=== PATIENT | male | born 2000 | race African-American/Black ===

== ENCOUNTER 2018-07-18 14:45 | Emergency (ER) | payer SELFPAY ==
[~2018-07-18] VITALS: Ht 167.6 cm; Wt 54.5 kg
[2018-07-18 14:49] VITALS: Ht 167.6 cm; Wt 54.5 kg
[2018-07-18 15:25] LABS: BASOPHILS 0.2 % (0-2); EOSINOPHILS 1.4 % (0-7); HEMATOCRIT 43.4 % (42.0-54.0); HEMOGLOBIN 14.9 g/dL (13.5-17.5); IMMATURE GRANULOCYTES 0.2 % (0-5); LYMPHOCYTES 31.5 % (15-50); MCH 31.2 pg (26.0-34.0); MCHC 34.3 g/dL (31.0-37.0); MEAN PLATELET VOLUME 9.4 fL (7.4-10.4); MONOCYTES 11.3 % (2-11); NEUTROPHILS 55.4 % (40-80); PLATELET COUNT 286 10x3/uL (130-400); RBC 4.77 10x6/uL (4.20-6.10); RDW 13.1 % (11.5-14.5); WBC 8.1 10x3/uL (4.8-10.8)
[2018-07-18 15:39] LABS: ALKALINE PHOSPHATASE 87 U/L (46-116); ALT (SGPT) 42 U/L (10-68); BILIRUBIN - TOTAL 0.46 mg/dL (0.2-1.3); CALC OSMOLALITY 278 mosm/kg (275-300); CARBON DIOXIDE 31.3 mmol/L (21.0-32.0); CHLORIDE - SERUM 101 mmol/L (98-107); GLUCOSE 82 mg/dL (74-106); PROTEIN - SERUM 8.6 g/dL (6.4-8.2); SODIUM 139 mmol/L (136-145); UREA NITROGEN 18 mg/dL (7-18); eGFR NON AFRICAN AMERICAN > 90 mL/min (90-120)
[2018-07-18 16:33] LABS: COLOR YELLOW (YELLOW)
[2018-07-18 16:34] LABS: APPEARANCE CLEAR (CLEAR); BILIRUBIN NEGATIVE (NEGATIVE); GLUCOSE NEGATIVE (NEGATIVE); KETONE NEGATIVE (NEGATIVE); NITRITE NEGATIVE (NEGATIVE); PROTEIN NEGATIVE (NEGATIVE); UROBILINOGEN NORMAL (NORMAL)
[2018-07-18 18:12] VITALS: BP 121/73
== END 2018-07-18 18:13 | disposition home or self-care (01) ==
LOC: D.ER 14:45
PROVIDERS: Family Medicine
DX: A64 Unspecified sexually transmitted disease (principal); N48.89 Other specified disorders of penis; R30.0 Dysuria

== ENCOUNTER 2018-10-09 09:59 | Emergency (ER) | payer SELFPAY ==
[~2018-10-09] VITALS: Ht 167.6 cm; Wt 60.9 kg
[2018-10-09 10:04] VITALS: Ht 167.6 cm; Wt 60.9 kg
[2018-10-09] MEDS ORDERED: VOLTAREN75 MG PO (10:51)
[2018-10-09 12:07] VITALS: BP 124/73
== END 2018-10-09 12:08 | disposition home or self-care (01) ==
LOC: D.ER 09:59
DX: S92.312A Displaced fracture of first metatarsal bone, left foot, initial encounter for closed fracture (principal); W20.8XXA Other cause of strike by thrown, projected or falling object, initial encounter; Y93.89 Activity, other specified; Y92.89 Other specified places as the place of occurrence of the external cause

== ENCOUNTER 2019-01-06 16:07 | Emergency (ER) | payer SELFPAY ==
[~2019-01-06] VITALS: Ht 167.6 cm; Wt 63.6 kg
[~2019-01-06 16:07] MED LIST: VOLTAREN75 MG PO
[2019-01-06 16:10] VITALS: BP 142/55; Ht 167.6 cm; Wt 63.6 kg
[2019-01-06] MEDS ORDERED: TORADOL10 MG PO (16:59)
== END 2019-01-06 17:20 | disposition home or self-care (01) ==
LOC: D.ER 16:07
DX: S92.312A Displaced fracture of first metatarsal bone, left foot, initial encounter for closed fracture (principal); X58.XXXA Exposure to other specified factors, initial encounter